=== PATIENT | male | born 2005 | race African-American/Black ===

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

== ENCOUNTER 2024-01-27 19:06 | Emergency (ER) | payer OTHER ==
[~2024-01-27] VITALS: Ht 185.4 cm; Wt 79.1 kg
[~2024-01-27 19:06] MED LIST: IBUP1TAB7 PO; METH-1164 PO
[2024-01-27 19:38] VITALS: BP 139/73; TEMP 98.5; O2SAT 98
[2024-01-27 19:49] LABS: HEMATOCRIT 42.1 % (42.0-52.0); HEMOGLOBIN 13.9 g/dl (13.5-17.5); MEAN CORPUSCULAR HEMOGLOBIN 29.4 pg (27.0-33.0); PLATELET COUNT, AUTOMATED 274 10^3/uL (150-450); RED BLOOD COUNT 4.73 10^6/uL (4.30-6.10); WHITE BLOOD COUNT 6.4 10^3/uL (4.0-10.0)
[2024-01-27 20:08] LABS: AMPHETAMINES LEVEL URINE NEGATIVE (NEGATIVE); BARBITURATES URINE NEGATIVE (NEGATIVE); BENZODIAZEPINES URINE NEGATIVE (NEGATIVE); CANNABINOIDS URINE NEGATIVE (NEGATIVE); COCAINE METABOLITE URINE NEGATIVE (NEGATIVE); METHADONE URINE NEGATIVE (NEGATIVE); OPIATES URINE NEGATIVE (NEGATIVE); PHENCYCLIDINE URINE NEGATIVE (NEGATIVE)
[2024-01-27 20:22] LABS: ETHYL ALCOHOL (ETHANOL) < 0.003 % (0.000-0.010)
[2024-01-27 20:23] LABS: SALICYLATE LEVEL < 3.0 MG/DL (<30)
[2024-01-27 20:24] LABS: ALBUMIN 4.1 G/DL (3.2-5.2); ALKALINE PHOSPHATASE 87 U/L (40-129); ALT/SGPT 10 U/L (7.0-40); AST/SGOT < 8 U/L (<34); BILIRUBIN,DIRECT 0.2 MG/DL (<0.4); BILIRUBIN,TOTAL 0.6 MG/DL (0.3-1.2); BLOOD UREA NITROGEN 10 MG/DL (9-23); CARBON DIOXIDE LEVEL 28 MMOL/L (20-31); CHLORIDE LEVEL 107 MMOL/L (98-107); CREATININE FOR GFR 0.87 MG/DL (0.70-1.30); GLUCOSE, FASTING 90 MG/DL (60-100); POTASSIUM SERUM 3.9 MMOL/L (3.5-5.1); SODIUM LEVEL 141 MMOL/L (136-145); TOTAL PROTEIN 7.4 G/DL (5.7-8.2)
[2024-01-27 20:26] LABS: THYROID STIMULATING HORMONE 1.008 uIU/ML (0.48-4.17)
== END 2024-01-27 20:50 ==
LOC: M ED 19:06 → EDBD 19:06 → M ED 20:50
DX: F32.9 Major depressive disorder, single episode, unspecified (principal); F12.10 Cannabis abuse, uncomplicated; Z88.0 Allergy status to penicillin; Z91.013 Allergy to seafood

== ENCOUNTER 2024-05-02 22:27 | Emergency (ER) | payer OTHER ==
[~2024-05-02] VITALS: Ht 185.4 cm; Wt 77.2 kg
[2024-05-03] MEDS ORDERED: VALI2TAB PO (03:36)
[2024-05-03] MEDS ORDERED: MEDR4PAK PO (03:36)
[2024-05-03] MEDS: predniSONE 20 MG TAB PO ONE (03:42)
[2024-05-03 03:53] VITALS: BP 129/71; TEMP 96.7; O2SAT 100
== END 2024-05-03 03:54 | disposition home or self-care (01) ==
LOC: M ED 22:27
DX: M54.50 Low back pain, unspecified (principal); Z88.0 Allergy status to penicillin; Z91.013 Allergy to seafood; Z79.1 Long term (current) use of non-steroidal anti-inflammatories (NSAID); Z79.899 Other long term (current) drug therapy
CPT/HCPCS: 72110; 73560; 99283; J7512

== ENCOUNTER 2024-05-22 11:48 | Emergency (ER) | payer OTHER ==
[~2024-05-22] VITALS: Ht 185.4 cm; Wt 79.7 kg
[~2024-05-22 11:48] MED LIST changes: +MEDR4PAK PO; +VALI2TAB PO
[2024-05-22 11:56] VITALS: BP 132/77; TEMP 98.3; O2SAT 100
[2024-05-22] MEDS ORDERED: PRED10TA2 PO (15:39)
[2024-05-22] MEDS ORDERED: METH-1165 PO (15:39)
== END 2024-05-22 15:49 | disposition home or self-care (01) ==
LOC: M ED 11:48
DX: Z76.0 Encounter for issue of repeat prescription (principal); Z88.0 Allergy status to penicillin

== ENCOUNTER 2024-06-13 11:52 | Emergency (ER) | payer OTHER ==
[~2024-06-13] VITALS: Ht 185.4 cm; Wt 78.7 kg
[~2024-06-13 11:52] MED LIST changes: +METH-1165 PO; +PRED10TA2 PO
[2024-06-13 13:18] VITALS: BP 128/78; TEMP 99.2; O2SAT 99
== END 2024-06-13 13:20 | disposition home or self-care (01) ==
LOC: M ED 11:52
DX: M25.562 Pain in left knee (principal); Z88.0 Allergy status to penicillin; Z91.013 Allergy to seafood

== ENCOUNTER 2024-06-26 10:03 | Emergency (ER) | payer OTHER ==
[~2024-06-26] VITALS: Ht 182.9 cm; Wt 95.1 kg
[2024-06-26 10:05] VITALS: BP 120/75; TEMP 99.5; O2SAT 99
[2024-06-27] MEDS ORDERED: ALBU2.5V10 INH (11:28)
[2024-06-27] MEDS ORDERED: VENTAER INH (11:28)
[2024-06-27] MEDS ORDERED: NEBU1EAC78 MC ×2 (11:28→11:39)
== END 2024-06-26 10:37 | disposition left against medical advice (07) ==
LOC: M ED 10:03
DX: Z53.21 Procedure and treatment not carried out due to patient leaving prior to being seen by health care provider (principal)

== ENCOUNTER 2024-06-27 08:45 | Emergency (ER) | payer OTHER ==
[2024-06-27] MEDS: IPRATROPIUM 0.5MG/ALBUTEROL 2.5MG INH SOL UD 3ML NEB ONE (11:24)
[2024-06-27] MEDS ORDERED: VENTAER INH (11:28)
[2024-06-27] MEDS ORDERED: ALBU2.5V10 INH (11:28)
[2024-06-27] MEDS ORDERED: NEBU1EAC78 MC ×2 (11:28→11:39)
[2024-06-27 11:38] VITALS: BP 119/61; TEMP 98.6; O2SAT 97
== END 2024-06-27 11:41 | disposition home or self-care (01) ==
LOC: M ED 08:45
DX: J45.41 Moderate persistent asthma with (acute) exacerbation (principal); R56.9 Unspecified convulsions; Z88.0 Allergy status to penicillin; Z79.51 Long term (current) use of inhaled steroids

== ENCOUNTER 2024-06-30 15:48 | Emergency (ER) | payer OTHER ==
[~2024-06-30] VITALS: Ht 185.4 cm; Wt 79.3 kg
[~2024-06-30 15:48] MED LIST changes: +ALBU2.5V10 INH; +NEBU1EAC78 MC; +VENTAER INH
[2024-06-30] MEDS: ALBUTEROL SULFATE 2.5MG/0.5ML INH CONCENTRATE NEB SOLN NEB ONE (17:53)
[2024-06-30 18:20] VITALS: BP 123/66; TEMP 98.2; O2SAT 100
== END 2024-06-30 18:20 | disposition home or self-care (01) ==
LOC: M ED 15:48
DX: R07.89 Other chest pain (principal); J45.909 Unspecified asthma, uncomplicated; G40.909 Epilepsy, unspecified, not intractable, without status epilepticus

== ENCOUNTER 2024-11-29 04:32 | Emergency (ER) | payer OTHER ==
[~2024-11-29] VITALS: Ht 185.4 cm; Wt 80.2 kg
[~2024-11-29 04:32] MED LIST changes: +IBUP600T42 PO
[2024-11-29 04:35] VITALS: BP 130/75; TEMP 97.8; O2SAT 98
== END 2024-11-29 04:58 | disposition left against medical advice (07) ==
LOC: M ED 04:32
DX: Z53.21 Procedure and treatment not carried out due to patient leaving prior to being seen by health care provider (principal)

== ENCOUNTER 2024-12-01 15:28 | Emergency (ER) | payer OTHER ==
[~2024-12-01] VITALS: Ht 182.9 cm; Wt 78.5 kg
[2024-12-01 16:19] LABS: BASO # 0.0 10^3/uL (0.0-0.2); BASO % 0.5 % (0.0-1.0); EOS # 0.1 10^3/uL (0.0-0.5); EOS % 1.1 % (0.0-3.0); LYMPH # 1.3 10^3/uL (1.5-5.0); LYMPH % 15.5 % (24.0-44.0); MONO # 0.7 10^3/uL (0.0-0.8); MONO % 8.7 % (2.0-8.0); NEUTROPHILS # 6.1 10^3/uL (1.5-8.5); NEUTROPHILS % 73.8 % (36.0-66.0); PLATELET COUNT, AUTOMATED 238 10^3/uL (150-450)
[2024-12-01 16:42] LABS: CALCIUM LEVEL 10.2 MG/DL (8.5-10.1); CARBON DIOXIDE LEVEL 30 MMOL/L (20-31); CHLORIDE LEVEL 102 MMOL/L (98-107); CREATININE FOR GFR 1.00 MG/DL (0.70-1.30); GLOMERULAR FILTRATION RATE > 90.0 (>60); POTASSIUM SERUM 4.5 MMOL/L (3.5-5.1); SODIUM LEVEL 141 MMOL/L (136-145)
[2024-12-01] MEDS: SUCRALFATE SUSP 1GM/10ML UD PO ONE (16:42)
[2024-12-01] MEDS: PANTOPRAZOLE 40MG VIAL IV ONE (16:42)
[2024-12-01] MEDS ORDERED: PROT1TAB2 PO (17:20)
[2024-12-01] MEDS ORDERED: SUCR1SS PO (17:20)
[2024-12-01 17:34] VITALS: BP 123/68; TEMP 99.2; O2SAT 100
== END 2024-12-01 17:35 | disposition home or self-care (01) ==
LOC: M ED 15:28
DX: K20.90 Esophagitis, unspecified without bleeding (principal); J45.909 Unspecified asthma, uncomplicated; G40.909 Epilepsy, unspecified, not intractable, without status epilepticus; Z88.0 Allergy status to penicillin; Z91.013 Allergy to seafood; Z79.52 Long term (current) use of systemic steroids; Z79.1 Long term (current) use of non-steroidal anti-inflammatories (NSAID); Z79.899 Other long term (current) drug therapy
CPT/HCPCS: 71045; 80048; 85025; 93005; 93041; 94760; 96374; 99284; J2470

== ENCOUNTER 2025-03-05 09:49 | Emergency (ER) | payer OTHER ==
[~2025-03-05] VITALS: Ht 182.9 cm; Wt 77.6 kg
[~2025-03-05 09:49] MED LIST changes: +PROT1TAB2 PO; +SUCR1SS PO
[2025-03-05 11:18] VITALS: BP 110/63; TEMP 96.3; O2SAT 99
== END 2025-03-05 11:27 | disposition home or self-care (01) ==
LOC: M ED 09:49
DX: B34.9 Viral infection, unspecified (principal); Z88.0 Allergy status to penicillin; F32.9 Major depressive disorder, single episode, unspecified; F41.9 Anxiety disorder, unspecified

== ENCOUNTER 2025-03-08 07:50 | Emergency (ER) | payer OTHER ==
[~2025-03-08] VITALS: Ht 182.9 cm; Wt 80.0 kg
[2025-03-08 07:52] VITALS: BP 118/71; TEMP 97.7; O2SAT 98
[2025-03-08] MEDS ORDERED: ACET-907 PO (07:57)
== END 2025-03-08 09:05 | disposition left against medical advice (07) ==
LOC: M ED 07:50
DX: Z53.21 Procedure and treatment not carried out due to patient leaving prior to being seen by health care provider (principal)